=== PATIENT | female | born 1950 | race Caucasian/White ===

== ENCOUNTER 2017-02-16 09:37 | Outpatient (CLI) | payer MEDICARE, BC ==
[~2017-02-16] VITALS: Ht 175.3 cm; Wt 60.9 kg
[2017-02-16] MEDS ORDERED: SYNTHROID137 MCG PO (10:11)
[2017-02-16] MEDS ORDERED: VITAMIN B-1000 MCG/M IM (10:12)
[2017-02-16] MEDS ORDERED: METANX PO (10:12)
[2017-02-16] MEDS ORDERED: VITAMIN D10000 UNI1 PO (10:13)
[2017-02-16] MEDS ORDERED: FISH OIL 1,0001 CA1 PO (10:14)
[2017-02-16] MEDS ORDERED: MAG-OX 400 MG400 MG PO (10:14)
[2017-02-16] MEDS ORDERED: CALCI-CHEW1 TAB.CHEW PO (10:14)
[2017-02-16 10:27] VITALS: BP 135/56; Ht 175.3 cm; Wt 60.9 kg
--- NOTE | 2017-02-16 10:33 | NUR ---
1019-PROLIA INJECTION TO LEFT ARM LOT#: [id number] EXP:05/03
== END 2017-02-16 10:44 | disposition home or self-care (01) ==
LOC: D.OPS 09:37
DX: M81.0 Age-related osteoporosis without current pathological fracture (principal)

== ENCOUNTER 2017-08-19 12:59 | Outpatient (CLI) | payer MEDICARE, BC ==
[~2017-08-19 12:59] MED LIST: CALCI-CHEW1 TAB.CHEW PO; FISH OIL 1,0001 CA1 PO; MAG-OX 400 MG400 MG PO; METANX PO; SYNTHROID137 MCG PO; VITAMIN B-1000 MCG/M IM; VITAMIN D10000 UNI1 PO
[2017-08-19 14:15] VITALS: BP 137/52; BMI 20.4
== END 2017-08-19 14:22 | disposition home or self-care (01) ==
LOC: D.OPS 12:59
DX: M81.0 Age-related osteoporosis without current pathological fracture (principal)

== ENCOUNTER 2018-02-22 12:26 | Outpatient (CLI) | payer MEDICARE, BC ==
[~2018-02-22] VITALS: Ht 175.3 cm; Wt 64.5 kg
[2018-02-22 12:47] VITALS: BP 144/76; Ht 175.3 cm; Wt 64.5 kg
== END 2018-02-22 13:10 ==
LOC: D.OPS 12:26
DX: M81.0 Age-related osteoporosis without current pathological fracture (principal)

== ENCOUNTER → 2018-09-13 12:29 | Outpatient (CLI) | payer MEDICARE, BC ==
[~2018-09-13] VITALS: Ht 175.3 cm; Wt 65.5 kg
[2018-09-13 14:16] VITALS: BP 133/65; Ht 175.3 cm; Wt 65.5 kg
== END | disposition home or self-care (01) ==
LOC: D.OPS 09-07 12:00
DX: M81.0 Age-related osteoporosis without current pathological fracture (principal); Z01.812 Encounter for preprocedural laboratory examination

== ENCOUNTER 2019-03-14 13:23 | Outpatient (CLI) | payer MEDICARE, BC ==
[~2019-03-14] VITALS: Ht 175.3 cm; Wt 65.9 kg
[2019-03-14 14:20] VITALS: Ht 175.3 cm; Wt 65.9 kg
== END 2019-03-14 14:25 | disposition home or self-care (01) ==
LOC: D.OPS 13:23
PROVIDERS: ATTEND Family Medicine
DX: M81.0 Age-related osteoporosis without current pathological fracture (principal)